=== PATIENT | female | born 1980 | race Caucasian/White ===

== ENCOUNTER 2021-05-26 18:55 | Emergency (ER) | payer SELFPAY ==
[~2021-05-26] VITALS: Ht 170.2 cm; Wt 60.8 kg
[2021-05-26] MEDS: SODIUM CHLORIDE 0.9% 1000ML 1,000 ML IV SCH ×2 (19:40→21:38)
[2021-05-26] MEDS ORDERED: ONDANSETRON HCL INJ 2MG/ML 2ML 2 MG/ML VIAL IV STA (19:49)
[2021-05-26] MEDS ORDERED: ONDANSETRON HCL INJ 2MG/ML 2ML 2 MG/ML VIAL ONE (19:51)
[2021-05-26] MEDS ORDERED: SODIUM CHLORIDE 0.9% 1000ML 1,000 ML ONE ×2 (19:51→21:43)
[2021-05-26] MEDS ORDERED: ACETAMINOPHEN 325 MG TAB PO ONE (20:00)
[2021-05-26] MEDS ORDERED: CEFTRIAXONE 1 GM in SODIUM CHLORIDE 0.9% 50ML 50 ML IV ONE (20:00)
[2021-05-26] MEDS ORDERED: CEFTRIAXONE 1 GM VIAL ONE (20:20)
[2021-05-26] MEDS ORDERED: KETOROLAC TROMETHAMINE 30 MG/ML VIAL IV STA (20:30)
[2021-05-26] MEDS ORDERED: FAMOTIDINE 20 MG/2 ML VIAL IV STA (20:30)
[2021-05-26] MEDS ORDERED: SODIUM CHLORIDE 0.9% 1000ML 1,000 ML IV SCH (20:30)
[2021-05-26] MEDS ORDERED: IOPAMIDOL 370 MG/ML 200 ML INFUS..BTL INJ ONE (21:18)
[2021-05-26] MEDS ORDERED: SODIUM CHLORIDE 0.9% 50ML 50 ML ONE (21:18)
[2021-05-26] MEDS ORDERED: KETOROLAC TROMETHAMINE 30 MG/ML VIAL ONE (21:43)
[2021-05-26] MEDS ORDERED: FAMOTIDINE 20 MG/2 ML VIAL IV ONE (21:43)
[2021-05-26] MEDS ORDERED: PIPERACILLIN/TAZOBACTAM 3.375 GM in SODIUM CHLORIDE 0.9% 50ML 50 ML IV ONE (23:00)
[2021-05-27] MEDS ORDERED: PIPERACILLIN/TAZOBACTAM 3.375 GM VIAL ONE (00:04)
[2021-05-27] MEDS ORDERED: SODIUM CHLORIDE 0.9% 250ML 250 ML ONE (00:04)
[2021-05-27] MEDS ORDERED: ALPRAZOLAM 1 MG TAB PO ONE (00:30)
[2021-05-27] MEDS ORDERED: ALPRAZOLAM 0.25 MG TAB PO ONE (00:45)
== END 2021-05-27 01:48 | disposition other institution (70) ==
LOC: FSED 19:21
DX: R50.9 Fever, unspecified (principal); K83.09 Other cholangitis; K83.1 Obstruction of bile duct; D64.9 Anemia, unspecified; F41.9 Anxiety disorder, unspecified; F15.90 Other stimulant use, unspecified, uncomplicated; F13.20 Sedative, hypnotic or anxiolytic dependence, uncomplicated; Z20.822 Contact with and (suspected) exposure to COVID-19
CPT/HCPCS: 70450; 74177; 80048; 80076; 80307; 81003; 83605; 85025; 87040; 87086; 87186; 87400; 99284; J0696; J1885; J2405; J2543; J7030; J7050; Q9967; U0002

== ENCOUNTER 2024-03-11 21:29 | Emergency (ER) | payer SELFPAY ==
[~2024-03-11] VITALS: Ht 170.2 cm; Wt 68.0 kg
[2024-03-11 21:35] VITALS: PULSE 108; RESP 18; TEMP 97
[2024-03-11] MEDS: ONDANSETRON HCL INJ 2MG/ML 2ML 2 MG/ML VIAL IV STA (23:00)
[2024-03-11] MEDS: FAMOTIDINE 20 MG/2 ML VIAL IV STA (23:00)
[2024-03-11] MEDS: SODIUM CHLORIDE 0.9% 1000ML 1,000 ML IV ONE (23:00)
[2024-03-12 01:00] VITALS: BP 166/88; PULSE 98; RESP 18; TEMP 98; O2SAT 97
== END 2024-03-12 01:00 | disposition home or self-care (01) ==
LOC: FSED 21:39
DX: R10.10 Upper abdominal pain, unspecified (principal); K59.00 Constipation, unspecified; E86.0 Dehydration; R11.2 Nausea with vomiting, unspecified; D64.9 Anemia, unspecified; F41.9 Anxiety disorder, unspecified
CPT/HCPCS: 70450; 74176; 99284; J2405; J7030; 80053; 80307; 81003; 81025; 85025